=== PATIENT | female | born 1965 | race Two or more races ===

== ENCOUNTER 2016-11-29 09:49 | Emergency (ER) | payer OTHER ==
[2016-11-29] MEDS ORDERED: ACETAMINOPHEN 500 MG TABLET ONE (12:36)
== END 2016-11-29 12:58 | disposition home or self-care (01) ==
LOC: ED 09:49
DX: J11.1 Influenza due to unidentified influenza virus with other respiratory manifestations (principal)
CPT/HCPCS: 87880; 99283 ×2; A9270